=== PATIENT | female | born 1990 | race Caucasian/White ===

== ENCOUNTER 2020-02-13 10:37 | Emergency (ER) | payer BC, OTHER ==
[2020-02-13 10:52] VITALS: BP 117/80; PULSE 114; O2SAT 98
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
== END 2020-02-13 11:43 | disposition home or self-care (01) ==
LOC: ED 10:37
DX: M54.2 Cervicalgia (principal); M25.519 Pain in unspecified shoulder; V89.2XXA Person injured in unspecified motor-vehicle accident, traffic, initial encounter
CPT/HCPCS: 72100; 99283

== ENCOUNTER 2022-09-14 16:36 | Emergency (ER) | payer OTHER ==
[2022-09-14 16:52] VITALS: O2SAT 99
[2022-09-14] MEDS ORDERED: XYLOCAINE 1% HCL 20 ML MDV ONE (16:58)
[2022-09-14] MEDS ORDERED: XYLOCAINE 1% HCL 20 ML MDV IJ ONE (17:00)
--- NOTE | 2022-09-14 17:19 | ERPHSYRPT ---
- History of Present Illness Time Seen by Provider: 09/14/22 16:38 Source: patient Exam Limitations: no limitations Patient Subjective Stated Complaint: pt here for pain to left big toe after couch fell on her foot, Triage Nursing Assessment: pt has controlled bleeding to right big toe, partial toenail in place,small amount of swelling noted Physician History: Patient is here for left big toe injury. Patient states that prior to arrival patient was moving a couch. Couch fell on her toe. She now has a toenail injury with partial nail injury. No fevers no chills. 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[employer] - Vaccination Dates Date of 2cond Vaccination (if applicable): 2020 - Review of Systems Constitutional: No Fever, No Chills Eyes: No Symptoms Ears, Nose, & Throat: No Symptoms Respiratory: No Cough, No Dyspnea Cardiac: No Chest Pain, No Edema, No Syncope Abdominal/Gastrointestinal: No Abdominal Pain, No Nausea, No Vomiting, No Diarr hea Genitourinary Symptoms: No Dysuria Musculoskeletal: Other (Left big toenail injury), No Back Pain, No Neck Pain Skin: No Rash Neurological: No Dizziness, No Focal Weakness, No Sensory Changes Psychological: No Symptoms Endocrine: No Symptoms All Other Systems: Reviewed and Negative - Past Medical History Pertinent Past Medical History: Yes Neurological History: Migraines - Past Surgical History Past Surgical History: No - Social History Smoking Status: Never smoker Exposure to second hand smoke: No Drug Use: none Patient Lives Alone: No - Female History Hx Last Menstrual Period: last month Hx Now: No - Nursing Vital Signs Nursing Vital Signs: Initial Vital Signs Temperature 96.9 F 09/14/22 16:51 Pulse Rate 77 09/14/22 16:51 Respiratory Rate 18 09/14/22 16:51 Blood Pressure 125/86 09/14/22 16:51 O2 Sat by Pulse Oximetry 99 09/14/22 16:51 Pain Scale Pain Intensity 3 - Physical Exam General Appearance: no apparent distress, alert Eye Exam: PERRL/EOMI, eyes nml inspection Ears, Nose, Throat Exam: normal ENT inspection, TMs normal, pharynx normal, moist mucous membranes Neck Exam: normal inspection, non-tender, supple, full range of motion Respiratory Exam: normal breath sounds, lungs clear, No respiratory distress Cardiovascular Exam: regular rate/rhythm, normal heart sounds, normal peripheral pulses Gastrointestinal/Abdomen Exam: soft, normal bowel sounds, No tenderness, No mass Back Exam: normal inspection, normal range of motion, No CVA tenderness, No vertebral tenderness Extremity Exam: normal inspection, normal range of motion, pelvis stable, other (Left big toe injury, partial nailbed injury. Nail in place. nail bed does appear injured, some surrounding bleeding.) Neurologic Exam: alert, oriented x 3, cooperative, normal mood/affect, nml cerebellar function, nml station & gait, sensation nml, No motor deficits Skin Exam: normal color, warm, dry, No rash Lymphatic Exam: No adenopathy SpO2: 99 - Course Nursing assessment & vital signs reviewed: Yes Ordered Tests: Active Orders 24 hr Category Date Time Status Wound Care STAT Care 09/14/22 17:06 Active TOE(S) (MIN 2 VIEWS) Stat Exams 09/14/22 16:57 Taken Medication Summary Discontinued Medications Generic Name Dose Route Start Last Admin Trade Name Freq PRN Reason Stop Dose Admin Bacitracin Zinc 0.9 each 09/14/22 17:35 09/14/22 17:37 Bacitracin Packet 1 Each Pckt TP 09/14/22 17:36 1 each STAT ONE Administration Bacitracin Zinc Confirm 09/14/22 17:35 Bacitracin Packet 1 Each Pckt Administered 09/14/22 17:36 Dose 1 each .ROUTE .STK-MED ONE Lidocaine HCl Confirm 09/14/22 16:58 Lidocaine Hcl 1% 20 Ml Mdv 20 Ml Ml Administered 09/14/22 16:59 Dose 10 ml .ROUTE .STK-MED ONE Lidocaine HCl 5 ml 09/14/22 17:00 09/14/22 17:01 Lidocaine Hcl 1% 20 Ml Mdv 20 Ml Ml IJ 09/14/22 17:01 5 ml STAT ONE Administration - Progress Progress: improved Progress Note: 09/14/22 17:22 Plan for x-ray, clean wound, will check on tetanus status 09/14/22 17:42 X-ray appears to show nondisplaced distal phalanges fracture left great toe. Plan for Keflex going home. Patient was cleaned and washed. Patient had tetanus shot in 2017 does not need one today. I did give patient follow-up with our foot and ankle physician. Return here sooner for new or changing symptoms. Counseled pt/family regarding: diagnosis, need for follow-up, rad results Medical Desision Making - Independent Historian Additional History obtained from: Mother - Departure Departure Disposition: Home Clinical Impression: Distal phalanx or phalanges, closed fracture, Injury of toenail of left foot Condition: Stable Critical Care Time: No Referrals: DOCTOR,NO FAMILY [Primary Care Provider] - Follow up/PCP as directed Instructions: Wound Care (DC), Foot Fracture (DC) Prescriptions: Cephalexin Mh 500 mg [Keflex 500 mg] 500 mg PO BID 10 Days #21 cap
[2022-09-14] MEDS ORDERED: BACIGUENT PACKET TP ONE (17:35)
[2022-09-14] MEDS ORDERED: BACIGUENT PACKET ONE (17:35)
[2022-09-14 17:47] VITALS: BP 92/66; PULSE 68
--- NOTE | 2022-09-14 22:05 | XRAY ---
Indication: Pain following injury. Comparison: None 3 view left great toe demonstrates nondisplaced hairline tuft fracture with soft tissue swelling. No other bony, articular, or soft tissue abnormalities.
== END 2022-09-14 17:55 | disposition home or self-care (01) ==
LOC: ED 16:36
DX: S92.425A Nondisplaced fracture of distal phalanx of left great toe, initial encounter for closed fracture (principal); S97.112A Crushing injury of left great toe, initial encounter; W20.8XXA Other cause of strike by thrown, projected or falling object, initial encounter
CPT/HCPCS: 73660; 96372; 99283; A9270-GY